=== PATIENT | male | born 2005 | race Caucasian/White ===

== ENCOUNTER 2023-07-31 22:43 | Emergency (ER) | payer BC ==
[~2023-07-31] VITALS: Ht 170.2 cm; Wt 101.0 kg
[2023-07-31 22:47] VITALS: BP 133/72; PULSE 104; RESP 16; TEMP 99.2; O2SAT 98
[2023-07-31] MEDS ORDERED: CEPH-585 PO (22:51)
== END 2023-07-31 22:59 | disposition home or self-care (01) ==
LOC: ER 22:44
DX: S40.861A Insect bite (nonvenomous) of right upper arm, initial encounter (principal); W57.XXXA Bitten or stung by nonvenomous insect and other nonvenomous arthropods, initial encounter; Y93.89 Activity, other specified; Y92.89 Other specified places as the place of occurrence of the external cause; Y99.8 Other external cause status
CPT/HCPCS: 99283